=== PATIENT | female | born 1935 | race Caucasian/White ===

== ENCOUNTER → 2017-03-10 | Day surgery (SDC) | payer MEDICARE ==
[~2017-03-10] MED LIST: ASPI81CH3; ATROPINE SULFATE 1% OPHT SOLN 2 ML BTL ONE; CALCTAB98 PO; DEXAMETHASONE SOD PHOS 4 MG/ML VIAL ONE; EPINEPHrine HCL (1:1000) 1 MG/ML VIAL ONE; FLURBIPROFEN 0.03% OPHT SOLN 2.5 ML BTL ONE; HYALURONIDASE/LIDOCAINE/BUPIVACAINE 11 ML SYR TL ONE; HYDR12.56; LACTATED RINGER'S 1000 ML INJ 1,000 ML ONE; LIDOCAINE HCL 2% 50 ML VIAL ONE; NEOMYCIN/POLYMYXIN/DEXAMETHASONE OPTH OINT 3.5 GM TUBE ONE; PHENYLEPHRINE HCL 2.5 % OPTH SOLN 15 ML BTL ONE; PROPOFOL 200 MG/20 ML AMP IV ONE; RALO1TAB13 PO; SODIUM CHLORIDE 0.9% INJ 10 ML ONE; TETRACAINE 0.5% OPTH SOLN 4 ML BTL ONE; TROPICAMIDE 1% OPHT SOLN 15 ML BTL ONE; TYLE500T PO; ceFAZolin INJ 1,000 MG VIAL ONE
--- NOTE | 2017-03-19 12:13 | TN ---
cc: JAMES GREENE MD DATE OF SURGERY: 03/10/2017 PREOPERATIVE DIAGNOSIS Epiretinal membrane, left eye. POSTOPERATIVE DIAGNOSIS Epiretinal membrane, left eye. PROCEDURE Pars plana vitrectomy and membrane peeling, left eye. ANESTHESIA MAC. SURGEON Fiordaliza. COMPLICATIONS None. DETAILS OF PROCEDURE After informed consent was obtained, the patient was brought to the operating room, placed under brief anesthesia with Propofol. 10 cc of a 50/50 mixture of 0.75% Marcaine and 2% lidocaine was placed in a modified Van Lint lid block as well as peribulbar injection. The patient was then prepared and draped in usual sterile fashion. A wide lid speculum was placed in the patient's left eye. 23-gauge vitrectomy cannulas were then placed in the lower temporal, superotemporal and superonasal quadrants 3 mm posterior to the corneoscleral limbus. Infusion cannula was placed lower temporally. A core vitrectomy was then performed. The vitrectomy is carried out as far as possible to vitreous base. Attention was then turned to the posterior pole where there was an epiretinal membrane covering the surface of the macula. It was carefully peeled off the macula with intraocular forceps. The same was then done for the internal limiting membrane. Careful indirect ophthalmoscopy with scleral depression was then performed and no peripheral retinal breaks were noted. The three vitrectomy cannulas were then removed. Subconjunctival injections of dexamethasone and Ancef were placed. An Atropine drop, Maxitrol ointment and a patch and shield were then applied. The patient tolerated the procedure well. There were no complications. She will follow-up tomorrow in our [facility] office. James Greene MD TAB/BT /5:56 PM /11:55 AM
== END | disposition home or self-care (01) ==
LOC: ESDC 12:01
PROVIDERS: ATTEND Ophthalmology Retina Specialist
DX: H35.372 Puckering of macula, left eye (principal)
CPT/HCPCS: 00145; 67041; J0171; J0690; J1100; J7120

== ENCOUNTER → 2018-02-01 | Outpatient (CLI) | payer MEDICARE ==
[~2018-02-01] MED LIST changes: +ASPI81TA23 PO; -ATROPINE SULFATE 1% OPHT SOLN 2 ML BTL ONE; +CALC250T PO; -DEXAMETHASONE SOD PHOS 4 MG/ML VIAL ONE; +DONE5TAB7 PO; -EPINEPHrine HCL (1:1000) 1 MG/ML VIAL ONE; -FLURBIPROFEN 0.03% OPHT SOLN 2.5 ML BTL ONE; -HYALURONIDASE/LIDOCAINE/BUPIVACAINE 11 ML SYR TL ONE; +HYDR12.57 PO; -LACTATED RINGER'S 1000 ML INJ 1,000 ML ONE; -LIDOCAINE HCL 2% 50 ML VIAL ONE; +MELO7.5T27 PO; +MULT-65 PO; +MULT10CA PO; -NEOMYCIN/POLYMYXIN/DEXAMETHASONE OPTH OINT 3.5 GM TUBE ONE; +OXYB5TAB8 PO; -PHENYLEPHRINE HCL 2.5 % OPTH SOLN 15 ML BTL ONE; -PROPOFOL 200 MG/20 ML AMP IV ONE; +RALO60 PO; -SODIUM CHLORIDE 0.9% INJ 10 ML ONE; -TETRACAINE 0.5% OPTH SOLN 4 ML BTL ONE; -TROPICAMIDE 1% OPHT SOLN 15 ML BTL ONE; +TYLE325T PO; -ceFAZolin INJ 1,000 MG VIAL ONE
[2018-02-01 15:38] LABS: AUTOMATED NEUTROPHIL # 3.4 TH/MM3 (1.8-7.7); BASOPHIL % 0.9 % (0.0-2.0); EOSINOPHIL # 0.2 TH/MM3 (0-0.4); EOSINOPHIL % 3.7 % (0.0-4.0); HEMATOCRIT 38.3 % (35.0-46.0); LYMPH % 22.2 % (9.0-44.0); LYMPHOCYTE # 1.1 TH/MM3 (1.0-4.8); MEAN CELL VOLUME 96.5 FL (80.0-100.0); MEAN CORPUSCULAR HEMOGLOBIN 32.8 PG (27.0-34.0); MEAN CORPUSCULAR HGB CONC 33.9 % (32.0-36.0); MEAN PLATELET VOLUME 8.6 FL (7.0-11.0); MONO % 6.7 % (0.0-8.0); MONOCYTE # 0.3 TH/MM3 (0-0.9); NEUT % 66.5 % (16.0-70.0); PLATELET COUNT 219 TH/MM3 (150-450); RED BLOOD COUNT 3.96 MIL/MM3 (4.00-5.30); RED CELL DISTRIBUTION WIDTH 13.8 % (11.6-17.2); WHITE BLOOD COUNT 5.1 TH/MM3 (4.0-11.0)
[2018-02-01 15:51] LABS: BICARBONATE 29.6 MEQ/L (21.0-32.0); CALCIUM 9.3 MG/DL (8.5-10.1); CREATININE 0.8 MG/DL (0.50-1.00)
[2018-02-01 16:00] LABS: BILIRUBIN, URINE NEG (NEG); BLOOD, URINE NEG (NEG); GLUCOSE,URINE NEG (NEG); KETONE, URINE NEG (NEG); MUCUS URINE FEW /lpf (OCC); NITRITE,URINE NEG (NEG); PH, URINE 5.5 (5.0-8.5); SQUAMOUS EPITHELIAL CELL URINE <1 /hpf (0-5); URINE COLOR YELLOW (YELLW/STRAW); URINE LEUKOCYTE ESTERASE NEG (NEG)
--- NOTE | 2018-02-01 16:20 | EKG ---
Date Performed: 02/01/2018 Time Performed: 14:01:54 PTAGE: 82 years EKG: SINUS BRADYCARDIA LOW QRS VOLTAGE IN PRECORDIAL LEADS POSSIBLE ANTERIOR MYOCARDIAL INFARCTI ON, OF INDETERMINATE AGE ABNORMAL ECG Compared to prior electrocardiogram, R wave progression is diff erent. Clinical correlation is suggested as there may be a significant chance this is due to erroneou s lead placement. DOCTOR: Joey Encinas Interpretating Date/Time 02/01/2018 16:18:54
== END ==
LOC: CPRE 13:41
PROVIDERS: ATTEND Obstetrics & Gynecology
DX: Z01.812 Encounter for preprocedural laboratory examination (principal); Z01.810 Encounter for preprocedural cardiovascular examination; N95.0 Postmenopausal bleeding; R94.31 Abnormal electrocardiogram [ECG] [EKG]
CPT/HCPCS: 36415; 80048; 81001; 85025; 93005

== ENCOUNTER → 2018-02-03 | Day surgery (SDC) | payer MEDICARE ==
--- NOTE | 2018-02-02 11:23 | MH ---
cc: Rod Marte MD DATE OF ADMISSION: 02/03/2018 DATE OF ADMISSION: 02/03/2018 ADMITTING DIAGNOSIS: Postmenopausal bleeding. HISTORY OF PRESENT ILLNESS: The patient is an 82-year-old white female, para 1-0-3-1, who returned for evaluation on 01/06/2018 with a brown vaginal discharge with slight odor. Her Pap smear was normal. She was treated with MetroGel for BV. Her vaginal ultrasound from 01/10/2018 showed a uterus that measured 4.7 cm, endometrium was 7-8 mm. The ovaries appeared to be absent. She is now admitted for a D and C. PAST MEDICAL HISTORY: PREVIOUS SURGERY: She had removal of the left ovary in 8 and possibly the right at the same time. She had a breast biopsy in 1959, benign. She had a basal cell carcinoma of the left side of the face in the past. MEDICATIONS: She will bring in her list. ALLERGIES: PENICILLIN. TRANSFUSIONS: None. OB HISTORY: One vaginal delivery with 3 spontaneous abortions. SOCIAL HISTORY: She is , a homemaker. Alcohol: Occasional. Tobacco: None. Drugs: None. FAMILY HISTORY: Noncontributory. PHYSICAL EXAMINATION: GENERAL: Exam reveals a well-nourished, well-developed white female. VITAL SIGNS: Stable. HEENT: Exam is normal. CHEST: The chest is clear. HEART: Regular rate. BREASTS: The breasts are symmetrical. ABDOMEN: Benign. PELVIC EXAM: Normal external genitalia and BUS. Vagina is normal. Cervix normal. Uterus normal size, shape. Adnexa nonpalpable. ASSESSMENT: As above. PLAN: She is now admitted for hysteroscopy, D and C. While in the office, I explained the procedures, the risk, benefits and complications were explained and accepted. Rod Marte MD JAW/SB , 10:55 AM , 11:22 AM
[~2018-02-03] VITALS: Ht 152.4 cm; Wt 69.6 kg
[~2018-02-03] MED LIST changes: +*ENALAPRILAT 1.25 MG/ML VIAL PERIprocedural Use ONLY ONE; +ACETAMINOPHEN 1000 MG/100 ML 100 ML IV ONE; +CHLORHEXIDINE GLUCONATE 2 % 1 PACK (2 CLOTHS) TOPICAL PRN; +DEXAMETHASONE SOD PHOS 4 MG/ML VIAL IV ONE; +DO NOT ADM ANY ANTICOAGULANT DRUGS PRN; +DOXYCYCLINE 100 MG/NS 100 ML IV ONE; +FLUMAZENIL 0.5 MG/5 ML VIAL IV PRN; +KETOROLAC TROMETHAMINE 30 MG/ML (IVP) VIAL IV PUSH ONE; +LACTATED RINGER'S 1000 ML IV PRN; +LIDOCAINE HCL 1% PF 5 ML SYRINGE OTHER ONE; +MEPERIDINE HCL 50 MG/ML VIAL ONE; +METOCLOPRAMIDE HCL 10 MG/2 ML VIAL IV PRN; +METOCLOPRAMIDE HCL 10 MG/2 ML VIAL IV PUSH PRN; +METOPROLOL TARTRATE 25 MG TAB PO PRN; +MIDAZOLAM HCL 2 MG/2 ML VIAL ONE; +ONDANSETRON HCL 4 MG/2 ML VIAL IV ONE; +POVIDONE IODINE 5% (ANTISEPSIS KIT) 4 APPLICATIONS EACH NARE PRN; +PROPOFOL 200 MG/20 ML AMP IV ONE; +SODIUM CHLORID 0.9% 500 ML IV PRN
--- NOTE | 2018-02-03 08:14 | MP ---
cc: Rod Marte MD DATE OF OPERATION: 02/03/2018 SURGEON: Rod Marte MD PREOPERATIVE DIAGNOSIS: Postmenopausal bleeding. POSTOPERATIVE DIAGNOSIS: Postmenopausal bleeding. Pathology pending. PROCEDURE: Hysteroscopy, D and C. ANESTHESIA: General LMA. ESTIMATED BLOOD LOSS: Less than 10 mL. FLUIDS: Half liter of crystalloid. OBJECTIVE FINDINGS: Following induction of adequate general LMA anesthesia, the patient was prepped and draped supine on the operating table in the dorsal lithotomy position in the usual sterile fashion with the bladder being drained via in-and-out catheterization. Exam under anesthesia revealed a normal size, shape anterior uterus. No adnexal masses. A heavy weighted speculum was placed in the posterior fornix of the vagina. Anterior lip of the cervix grasped with a single-toothed tenaculum. The cervix and uterus sounded to 7 cm. The cervix dilated with a 18 Hanks dilator. The hysteroscope was passed through a normal endocervix and normal endometrium. The scope was withdrawn. Endocervical curettings were obtained with a small serrated curette, endometrial a small sharp curette. The polyp forceps were passed to pick pack worker loose tissue and debris and the scope was passed again to ensure the cavity is clean. The tenaculum site sutured with 3-0 chromic. All instruments removed. All counts correct. The patient's legs taken out of the stirrups. She was awakened and taken to the recovery room in good condition. Rod Marte MD JAW/DL , 07:59 AM , 08:12 AM
[2018-02-03 10:20] VITALS: BP 158/71; PULSE 49; RESP 20; TEMP 97.6; O2SAT 95
== END | disposition home or self-care (01) ==
LOC: HSDC 05:28
PROVIDERS: ATTEND Obstetrics & Gynecology
DX: N95.0 Postmenopausal bleeding (principal); I10 Essential (primary) hypertension; G47.30 Sleep apnea, unspecified; Z85.828 Personal history of other malignant neoplasm of skin
CPT/HCPCS: 00952; 58558; 88305; J1100; J1885; J2175; J2250; J2405; J3010; J7120